=== PATIENT | female | born 1990 | race Caucasian/White ===

== ENCOUNTER 2022-08-06 11:34 | Outpatient (CLI) | payer BC, OTHER ==
[2022-08-06 13:33] VITALS: BP 124/78; PULSE 124; RESP 16; TEMP 97.2
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
== END 2022-08-06 13:10 | disposition home or self-care (01) ==
LOC: FBPOP 11:34
PROVIDERS: ATTEND Obstetrics & Gynecology Obstetrics
DX: O47.03 False labor before 37 completed weeks of gestation, third trimester (principal); Z3A.33 33 weeks gestation of pregnancy; Z88.0 Allergy status to penicillin; Z88.2 Allergy status to sulfonamides; Z91.040 Latex allergy status; Z88.8 Allergy status to other drugs, medicaments and biological substances
CPT/HCPCS: 59025; 99213

== ENCOUNTER 2022-08-29 09:42 | Outpatient (CLI) | payer BC, OTHER ==
[2022-08-29 10:28] VITALS: BP 125/71; PULSE 118; RESP 16; TEMP 95.5
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
== END 2022-08-29 10:13 | disposition home or self-care (01) ==
LOC: FBPOP 09:42
PROVIDERS: ATTEND Obstetrics & Gynecology
DX: O47.03 False labor before 37 completed weeks of gestation, third trimester (principal); Z3A.36 36 weeks gestation of pregnancy; Z91.040 Latex allergy status; Z88.0 Allergy status to penicillin; Z88.2 Allergy status to sulfonamides; Z88.8 Allergy status to other drugs, medicaments and biological substances
CPT/HCPCS: 59025; 99213

== ENCOUNTER → 2023-11-27 | Outpatient (CLI) | payer BC, OTHER ==
[2023-11-27 15:40] LABS: BUN/Creat Ratio 21.88 Ratio (12.00-20.00); Blood Urea Nitrogen 17.5 mg/dL (9.0-27.0); Calcium 9.8 mg/dL (8.7-10.3); Carbon Dioxide 22.2 mmol/L (21.6-31.8); Chloride 103 mmol/L (96-109); Glucose 90 mg/dL (70-110); Potassium 4.3 mmol/L (3.5-5.5); Sodium 140 mmol/L (135-145)
[2023-11-27 15:51] LABS: Basophils # (A) 0.02 X 10*3/uL (0.00-0.10); Basophils % (A) 0.3 %; Eosinophils # (A) 0.12 X 10*3/uL (0.04-0.35); Eosinophils % (A) 1.8 %; HCT 40.1 % (37.2-46.3); HGB 12.8 g/dL (12.0-15.0); Lymphocytes # (A) 1.41 X 10*3/uL (0.90-5.00); Lymphocytes % (A) 21.7 %; MCH 27.2 pg (27.0-32.0); MCHC 31.9 g/dL (32.0-37.0); MCV 85.1 FL (80.0-97.0); Mean Platelet Volume 10.8 FL (9.5-12.2); Monocytes # (A) 0.37 X 10*3/uL (0.20-1.00); Monocytes % (A) 5.7 %; NRBC Per 100 WBC 0 X 10*3/uL (0.00-0.01); Neutrophils # (A) 4.58 X 10*3/uL (1.80-7.70); Neutrophils % (A) 70.3 %; Platelet Count 319 X 10*3/uL (140-440); RBC 4.71 X 10*6/uL (4.10-5.20); RDW 13.7 % (11.5-14.5); WBC 6.51 X 10*3/uL (4.50-10.00)
== END | disposition home or self-care (01) ==
LOC: LABPAT 09:50
PROVIDERS: ATTEND Orthopaedic Surgery
DX: Z01.812 Encounter for preprocedural laboratory examination (principal); M75.42 Impingement syndrome of left shoulder
CPT/HCPCS: 80048; 85025

== ENCOUNTER 2023-12-01 06:52 | Day surgery (SDC) | payer BC, OTHER ==
--- NOTE | 2023-11-30 08:38 | P.HPOR ---
History of Present Illness H&P Date: 11/30/23 Chief Complaint: Left shoulder pain Patient is a 33-year-old female who presents with left shoulder pain that began in April 2022 after she jammed it during a fall. She's had extensive therapy without much relief. She notes anterior and lateral pain with overhead activity and at night. She's been taking Geddes for this. Review of Systems Per HPI Past Medical History Past Medical History: GERD/Reflux History of Any Multi-Drug Resistant Organisms: None Reported Past Surgical History: Cholecystectomy Past Anesthesia/Blood Transfusion Reactions: Postoperative Nausea & Vomiting (PONV) Smoking Status: Former smoker - Past Family History Father Family Medical History: No Reported History Medications and Allergies Home Medications Medication Instructions Recorded Confirmed Type Dextroamp-Amphetamin 20 mg PO DAILY 11/28/23 11/28/23 History FLUoxetine HCL 40 mg PO DAILY 11/28/23 11/28/23 History HYDROcodone/APAP 10-325MG [Geddes 1 tab PO TID PRN 11/28/23 11/28/23 History 10-325] LORazepam [Ativan] 2 mg PO TID PRN 11/28/23 11/28/23 History Allergies Allergy/AdvReac Type Severity Reaction Status Date / Time Latex, Natural Rubber Allergy Rash/Hives Verified 11/28/23 14:11 morphine Allergy Rash/Hives Verified 11/28/23 14:30 omeprazole [From Prilosec] Allergy Rash/Hives Verified 11/28/23 14:11 Penicillins Allergy Rash/Hives Verified 11/28/23 14:11 Sulfa (Sulfonamide Allergy Rash/Hives Verified 11/28/23 14:11 Antibiotics) Physical Examination - Shoulder left Tenderness with palpation: anterior, bicipital groove Pain: with abduction, with forward flexion ROM: forward flexion: 100 degrees ROM: internal rotation: lower lumbar ROM: external rotation: 60 degrees Crepitus with motion: Yes Strength: abduction: 4/5 Strength: external rotation: 5/5 Tests: internal impingement tests: positive, external impingment tests: positive Results She is a well-developed well-nourished female proximally 5 foot 9, 220 pounds of endomorphic habitus. HEENT exam is nonfocal, neck supple. She's tender about the anterior subacromial space of the left shoulder. She has moderate subacromial crepitus. Lynn, Neer sign, and speed test is positive. Her distal neurovascular appears intact in the left upper extremity. - Diagnostic results Shoulder MRI: image reviewed (MRI of the left shoulder shows evidence of intrasubstance signal involving the supraspinatus.) Assessment and Plan Assessment: Left shoulder impingement/rotator cuff tendinitis Plan: I talked to the patient at length regarding her condition along with treatment options. At this point she remains quite symptomatic despite previous extensive conservative measures. After a thorough discussion she opted to proceed with surgery. We'll plan to proceed with left shoulder arthroscopy with probable subacromial decompression. Risks and benefits were discussed at length in layman's terms. We will likely perform that as an outpatient procedure.
[2023-12-01] MEDS ORDERED: fentaNYL (PF) 50 MCG/ML 2 ML AMP IV PRN (07:00)
[2023-12-01] MEDS ORDERED: MIDAZOLAM 2 MG/2 ML VIAL IV PRN (07:00)
[2023-12-01] MEDS: LACTATED RINGERS 1,000 ML IV SCH (07:55)
[2023-12-01] MEDS: DEXAMETHASONE SOD PHOSPHATE 4 MG/ML 1 ML VIAL IV ONE (07:56)
[2023-12-01] MEDS: ONDANSETRON 4 MG/2 ML VIAL IVP ONE (07:56)
[2023-12-01] MEDS: SCOPOLAMINE 1 MG/72 HR PATCH TRANSDERM ONE (07:56)
[2023-12-01] MEDS: LIDOCAINE 1% (10MG/ML) FOR IV START INTRADERMA ONE (07:57)
[2023-12-01 08:17] VITALS: RESP 16
[2023-12-01] MEDS: MIDAZOLAM 2 MG/2 ML VIAL IVP ONE (08:28)
[2023-12-01] MEDS: fentaNYL (PF) 50 MCG/ML 2 ML AMP IVP ONE (08:28)
[2023-12-01] MEDS ORDERED: PHENYLEPHRINE-0.9% NACL SYG 1,000 MCG/10 ML SYRINGE ONE (08:42)
[2023-12-01] MEDS ORDERED: ROPIVACAINE 5 MG/ML 30 ML VIAL ONE (08:42)
[2023-12-01] MEDS ORDERED: GLYCOPYRROLATE 0.2 MG/ML 2 ML VIAL ONE (08:42)
[2023-12-01] MEDS ORDERED: fentaNYL (PF) 50 MCG/ML 2 ML AMP ONE (08:42)
[2023-12-01] MEDS ORDERED: PROPOFOL 10 MG/ML 20 ML VIAL IV ONE (08:42)
[2023-12-01] MEDS ORDERED: MIDAZOLAM 2 MG/2 ML VIAL ONE (08:42)
[2023-12-01] MEDS ORDERED: ROCURONIUM 10 MG/ML (5 ML VIAL) IV ONE (08:42)
[2023-12-01] MEDS ORDERED: SUCCINYLCHOLINE CHLORIDE 200 MG/10 ML VIAL IV ONE (08:42)
[2023-12-01] MEDS ORDERED: NEOSTIGMINE 1 MG/ML 10 ML VIAL ONE (08:42)
[2023-12-01] MEDS ORDERED: LIDOCAINE 1% INJ 10MG/ML (20 ML MDV) ONE (08:42)
[2023-12-01] MEDS ORDERED: ePHEDrine 50 MG/ML 1 ML VIAL ONE (08:42)
[2023-12-01] MEDS: EPINEPHrine (PF) 1 ML in SODIUM CHLORIDE 0.9% IRRIGATIO 3,000 ML IRRIGATION ONE ×4 (09:08)
--- NOTE | 2023-12-01 09:50 | P.OP ---
Date of Procedure: 12/01/23 Preoperative Diagnosis: Left shoulder impingement Postoperative Diagnosis: Same Procedure(s) Performed: Left shoulder arthroscopic subacromial decompression/distal clavicular resection Anesthesia: SHARM[facility] regional Surgeon: Kyrie Rodriguez Estimated Blood Loss (ml): 10 Pathology: none sent Condition: stable Disposition: PACU Indications for Procedure: The patient's a 33-year-old female who presents with progressive left shoulder pain despite conservative measures. A discussion of the risks and benefits of operative intervention versus continued conservative measures was made with the patient. She opted to proceed with surgery. Operative risks to include infection, neurovascular injury, development of blood clots, possible incomplete resolution of symptoms, possible worsening symptoms and need for subsequent procedures was discussed. Informed consent was obtained. Operative Findings: As below Description of Procedure: The patient was brought to the operating room, and after induction of general anesthesia was placed in a beachchair position. A preoperative interscalene block was placed for postoperative analgesia. I examined the left shoulder. There was no gross block to passive motion or gross glenohumeral instability. The left upper extremity was prepped and draped in normal fashion. The bony outlines the acromion, distal clavicle, and coracoid process were outlined with a skin marker. The glenohumeral joint was inflated with 50 mL of saline utilizing a spinal needle from posterior approach. A posterior portal was made through a 5 mm skin incision 1 cm medial and inferior to the posterior lateral border time. A blunt trocar was used to easily into the joint. Diagnostic arthroscopy was performed. An anterior portal was made just lateral to the coracoid process entering the joint above the subscapularis tendon. The subscapularis tendon appeared to be intact. Anterior labrum was intact. The inferior recess was inspected. The posterior labrum was intact. The biceps and its anchor were stable and intact. On inspection the rotator cuff, it appeared to be intact on the articular surface. The arthroscope was placed into the subacromial space. A lateral portal was made 2 centimeters inferior to the anterior lateral border of the acromion. The soft tissue on the undersurface of the acromion was debrided with a motorized shaver and electrocautery clearly defining the anterior medial and lateral borders as well as the distal clavicle. An anterior inferior acromioplasty was performed with a motorized adam starting anterolateral, then extending this posteriorly, then extending this medially. I converted to a flat acromion and this was verified in the posterior and lateral viewing portals. The distal clavicle was impinging on the subacromial space. The distal 8 mm of the clavicle was resected with a motorized adam. There was significant bursal thickening in the subacromial space. This was debrided with a motorized shaver. The rotator cuff was inspected and felt to be intact. The arthroscope was then removed. The portals were closed with simple 3-0 nylon sutures. A sterile dressing was applied in addition to a sling. The patient was then awoken from general anesthesia and transferred to recovery room in good condition. Blood loss was estimated at 10 mL. No complications were incurred. Sponge and needle counts were correct in the case. Tanmay AMARO assisted and the major components of the case to include arm positioning, decompression, and distal clavicular resection.
[2023-12-01 10:28] VITALS: TEMP 98.5
[2023-12-01] MEDS: IV FLUID CONTINUATION 100 ML IV ONE (10:28)
[2023-12-01 11:01] VITALS: BP 109/61; PULSE 99
--- NOTE | 2023-12-01 16:44 | P.ANPRN ---
Procedure Note - Anesthesia - Nerve Block Performed Left Interscalene Single Time Out Performed: Yes ([id number]) Date of Procedure: 12/01/23 Procedure Start Time: : Procedure Stop Time: :32 Location of Patient: PreOp Indication: Acute Post-Operative Pain, Requested by Surgeon Specifically requested for management of pain by : Kyrie Rodriguez Sedation Type: Sedate with meaningful contact maintained Preparation: Sterile Prep Position: Supine Catheter: None Needle Types: Pajunk Needle Gauge: 21 Ultrasound used to visualize needle placement: Yes Ultrasound used to observe medication spread: Yes Injectate: 0.5% Ropivacaine (see comment for volume) (30cc) Blood Aspirated: No Pain Paresthesia on Injection Noted: No Resistance on Injection: Normal Image Stored and Saved: Yes Events: Uneventful and Well Tolerated
== END 2023-12-01 11:05 | disposition home or self-care (01) ==
LOC: OR 06:52
PROVIDERS: ATTEND Orthopaedic Surgery
DX: M75.42 Impingement syndrome of left shoulder (principal); F41.9 Anxiety disorder, unspecified; F43.10 Post-traumatic stress disorder, unspecified; K21.9 Gastro-esophageal reflux disease without esophagitis; Z87.891 Personal history of nicotine dependence; Z88.0 Allergy status to penicillin; Z88.1 Allergy status to other antibiotic agents; Z88.2 Allergy status to sulfonamides; Z91.040 Latex allergy status; Z88.8 Allergy status to other drugs, medicaments and biological substances; Z79.899 Other long term (current) drug therapy
CPT/HCPCS: 64415; 81025; 29824; 29826; J2250; J0330; J1100; J2710; J0690; J2405; J0171; J2001; J3010; J2795; J2704; J2371

== ENCOUNTER 2024-08-20 11:33 | Emergency (ER) | payer BC, OTHER ==
[2024-08-20 11:44] VITALS: BP 159/97; PULSE 104; RESP 16; TEMP 97.8
[2024-08-20] MEDS: KETOROLAC 15 MG/ML 1 ML VIAL IM STA (12:32)
[2024-08-20] MEDS: ORPHENADRINE 30 MG/ML 2 ML VIAL IM STA (12:32)
--- NOTE | 2024-08-20 12:32 | ED ---
Extremity Problem HPI - General Chief complaint: Extremity Problem,Nontraumatic Stated complaint: William knee pain Time Seen by Provider: 08/20/24 12:29 Source: patient, RN notes reviewed Mode of arrival: ambulatory Limitations: no limitations - History of Present Illness Initial comments: 34-year-old female presenting for bilateral knee and left shoulder pain. Patient states this pain is chronic for 1.5 years. States she is having a flareup of pain due to cold weather. States she takes Percocet for pain regularly however has been unable to get into her primary care doctor for prescription. She is requesting pain control today. No acute symptoms. No recent injuries or falls. Denies fevers, redness, swelling. - Related Data Home Medications Medication Instructions Recorded Confirmed Dextroamp-Amphetamin 20 mg PO DAILY 11/28/23 12/01/23 FLUoxetine HCL 40 mg PO DAILY 11/28/23 12/01/23 LORazepam [Ativan] 2 mg PO TID PRN 11/28/23 12/01/23 Albuterol Inhaler [Ventolin Hfa 2 puff INHALATION QID 12/01/23 12/01/23 Inhaler] Lansoprazole 15 mg PO DAILY 12/01/23 12/01/23 oxyCODONE-APAP 10-325MG [Percocet 1 tab PO Q6HR PRN 12/01/23 12/01/23 10-325 mg] Previous Rx's Medication Instructions Recorded Ketorolac [Toradol] 10 mg PO Q8HR #15 tab 08/20/24 Allergies Allergy/AdvReac Type Severity Reaction Status Date / Time Latex, Natural Rubber Allergy Rash/Hives Verified 12/01/23 07:49 morphine Allergy Rash/Hives Verified 12/01/23 07:49 omeprazole [From Prilosec] Allergy Rash/Hives Verified 12/01/23 07:49 Penicillins Allergy Rash/Hives Verified 12/01/23 07:49 Sulfa (Sulfonamide Allergy Rash/Hives Verified 12/01/23 07:49 Antibiotics) Review of Systems ROS Statement: Those systems with pertinent positive or pertinent negative responses have been documented in the HPI. ROS Other: All systems not noted in ROS Statement are negative. Past Medical History Additional Past Medical History / Comment(s): chronic pain History of Any Multi-Drug Resistant Organisms: None Reported Past Surgical History: Cholecystectomy, Orthopedic Surgery Past Psychological History: Anxiety, Depression Smoking Status: Never smoker General Exam Limitations: no limitations General appearance: alert, in no apparent distress Head exam: Present: atraumatic, normocephalic, normal inspection Extremities exam: Present: normal inspection, full ROM, normal capillary refill. Absent: tenderness, pedal edema, joint swelling, calf tenderness Neurological exam: Present: alert, oriented X3 Psychiatric exam: Present: normal affect, normal mood Skin exam: Present: warm, dry, intact, normal color. Absent: rash Course Vital Signs 08/20/24 11:40 Temperature 97.8 F Pulse Rate 104 H Respiratory 16 Rate Blood Pressure 159/97 O2 Sat by Pulse 99 Oximetry Medical Decision Making - Medical Decision Making Was pt. sent in by a medical professional or institution (PREM [facility], APPRENTICE PAINTER HAND, urgent care, hospital, or alf...) When possible be specific @ -No Did you speak to anyone other than the patient for history (EMS, parent, family, police, friend...)? What history was obtained from this source @ -No Did you review nursing and triage notes (agree or disagree)? Why? @ -I reviewed and agree with nursing and triage notes Were old charts reviewed (outside hosp., previous admission, EMS record, old EKG, old radiological studies, urgent care reports/EKG's, alf records)? Report findings @ -No old charts were reviewed Differential Diagnosis (chest pain, altered mental status, abdominal pain women, abdominal pain men, vaginal bleeding, weakness, fever, dyspnea, syncope, headache, dizziness, GI bleed, back pain, seizure, CVA, palpatations, mental health, musculoskeletal)? @ -Differential Musculoskeletal Muscular strain, contusion, ligament sprain, fracture, arthritis, septic arthritis, bursitis, cellulitis, muscle spasm, nerve compression, DVT, arterial occlusion, herpes zoster, electrolyte abnormality, tumor.... This is not meant to be in all inclusive list EKG interpreted by me (3pts min.). @ -None X-rays interpreted by me (1pt min.). @ -None done CT interpreted by me (1pt min.). @ -None done U/S interpreted by me (1pt. min.). @ -None done What testing was considered but not performed or refused? (CT, X-rays, U/S, labs)? Why? @ -Declines imaging today as she states pain is chronic in nature, no new injuries What meds were considered but not given or refused? Why? @ -None Did you discuss the management of the patient with other professionals (professionals i.e. , PA, APPRENTICE PAINTER HAND, lab, RT, psych nurse, drug abuse social worker, sorter lumber straightener, teacher, humane officer, case hardener)? Give summary @ -No Was smoking cessation discussed for >3mins.? @ -No Was critical care preformed (if so, how long)? @ -No Were there social determinants of health that impacted care today? How? (Homelessness, low income, unemployed, alcoholism, drug addiction, transportation, low edu. Level, literacy, decrease access to med. care, [facility], rehab)? @ -No Was there de-escalation of care discussed even if they declined (Discuss DNR or withdrawal of care, Hospice)? DNR status @ -No What co-morbidities impacted this encounter? (DM, HTN, Smoking, COPD, CAD, Cancer, CVA, ARF, Chemo, Hep., AIDS, mental health diagnosis, sleep apnea, morbid obesity)? @ -None Was patient admitted / discharged? Hospital course, mention meds given and route, prescriptions, significant lab abnormalities, going to OR and other pertinent info. @ -Discharge. This is a 34-year-old female presenting for acute flareup of chronic bilateral knee pain and left shoulder pain. Denies any acute symptoms. Neurovascularly intact. Patient declines imaging today as she states pain is chronic in nature and is requesting pain control today. Patient was provided with Toradol, Norflex, and morphine. Prescribed Toradol to pharmacy. Advised patient must follow-up with PCP for pain management. Case was discussed with my ED attending Dr. Carias. Patient discharged in stable condition. Undiagnosed new problem with uncertain prognosis? @ -No Drug Therapy requiring intensive monitoring for toxicity (Heparin, Nitro, Insulin, Cardizem)? @ -No Were any procedures done? @ -No Diagnosis/symptom? @ -Chronic bilateral knee pain Acute, or Chronic, or Acute on Chronic? @ -Acute on chronic Uncomplicated (without systemic symptoms) or Complicated (systemic symptoms)? @ -Uncomplicated Side effects of treatment? @ -No Exacerbation, Progression, or Severe Exacerbation? @ -No Poses a threat to life or bodily function? How? (Chest pain, [place], [place], pneumonia, PE, COPD, DKA, ARF, appy, cholecystitis, CVA, Diverticulitis, Homicidal, Suicidal, threat to staff... and all critical care pts) @ -No Disposition Clinical Impression: Bilateral chronic knee pain Disposition: HOME SELF-CARE Condition: Stable Additional Instructions: Follow-up with PCP. Please return to the Emergency Department if symptoms worsen or any other concerns. Prescriptions: Ketorolac [Toradol] 10 mg PO Q8HR #15 tab Is patient prescribed a controlled substance at d/c from ED?: No Referrals: [facility] [NON-STAFF] - 1-2 days [facility] [NON-STAFF] - 1-2 days None,Stated [Primary Care Provider] - 1-2 days Forms: Area PCPs Time of Disposition: 13:17
[2024-08-20] MEDS: MORPHINE SULFATE 4 MG/ML SYRINGE IM STA (12:33)
== END 2024-08-20 13:30 | disposition home or self-care (01) ==
LOC: EC 11:33
DX: G89.29 Other chronic pain (principal); M25.561 Pain in right knee; M25.562 Pain in left knee; Z88.0 Allergy status to penicillin; Z88.1 Allergy status to other antibiotic agents; Z88.2 Allergy status to sulfonamides; Z88.5 Allergy status to narcotic agent; Z91.040 Latex allergy status; Z88.8 Allergy status to other drugs, medicaments and biological substances
CPT/HCPCS: 99283; 96372 ×3; J2270; J2360; J1885

== ENCOUNTER 2024-08-24 08:44 | Emergency (ER) | payer MEDICARE, OTHER ==
[2024-08-24 08:49] VITALS: BP 137/88; PULSE 99; RESP 18; TEMP 98.3
--- NOTE | 2024-08-24 09:05 | ED ---
Extremity Problem HPI - General Chief complaint: Extremity Problem,Nontraumatic Stated complaint: L shoulder/both knee pain Time Seen by Provider: 08/24/24 08:49 Source: patient, RN notes reviewed Mode of arrival: ambulatory Limitations: no limitations - History of Present Illness Initial comments: This is a 34-year-old female who presents to the emergency department requesting help for her chronic pain. She has a history of chronic pain in her left shoulder and bilateral knees. Was previously on Percocet 10 mg 4 times daily. However, she is waiting for a new referral to pain management and has not been able to get her prescription for the last couple of months. Pain tends to get triggered with weather changes and as a result it has been recently increasing. Denies any new injuries. She was evaluated here 4 days ago. States that the morphine was not effective. She was given a prescription for Toradol, but states that this was not helpful either, prompting her to return today. - Related Data Home Medications Medication Instructions Recorded Confirmed Dextroamp-Amphetamin 20 mg PO DAILY 11/28/23 12/01/23 FLUoxetine HCL 40 mg PO DAILY 11/28/23 12/01/23 LORazepam [Ativan] 2 mg PO TID PRN 11/28/23 12/01/23 Albuterol Inhaler [Ventolin Hfa 2 puff INHALATION QID 12/01/23 12/01/23 Inhaler] Lansoprazole 15 mg PO DAILY 12/01/23 12/01/23 oxyCODONE-APAP 10-325MG [Percocet 1 tab PO Q6HR PRN 12/01/23 12/01/23 10-325 mg] Previous Rx's Medication Instructions Recorded Ketorolac [Toradol] 10 mg PO Q8HR #15 tab 08/20/24 Meloxicam [Mobic] 15 mg PO DAILY #30 tab 08/24/24 methocarbamoL [Robaxin-750] 1,500 mg PO TID PRN #30 tab 08/24/24 Allergies Allergy/AdvReac Type Severity Reaction Status Date / Time Latex, Natural Rubber Allergy Rash/Hives Verified 12/01/23 07:49 morphine Allergy Rash/Hives Verified 12/01/23 07:49 omeprazole [From Prilosec] Allergy Rash/Hives Verified 12/01/23 07:49 Penicillins Allergy Rash/Hives Verified 12/01/23 07:49 Sulfa (Sulfonamide Allergy Rash/Hives Verified 12/01/23 07:49 Antibiotics) Review of Systems ROS Statement: Those systems with pertinent positive or pertinent negative responses have been documented in the HPI. ROS Other: All systems not noted in ROS Statement are negative. Past Medical History Additional Past Medical History / Comment(s): chronic pain History of Any Multi-Drug Resistant Organisms: None Reported Past Surgical History: Cholecystectomy, Orthopedic Surgery Past Psychological History: Anxiety, Depression Smoking Status: Never smoker Past Alcohol Use History: None Reported Past Drug Use History: None Reported General Exam Limitations: no limitations General appearance: alert, in no apparent distress Head exam: Present: atraumatic, normocephalic, normal inspection Respiratory exam: Present: normal lung sounds bilaterally. Absent: respiratory distress, wheezes, rales, rhonchi, stridor Cardiovascular Exam: Present: regular rate, normal rhythm, normal heart sounds. Absent: systolic murmur, diastolic murmur, rubs, gallop, clicks Neurological exam: Present: alert, oriented X3, CN II-XII intact Psychiatric exam: Present: normal affect, normal mood Skin exam: Present: warm, dry, intact, normal color. Absent: rash Course Vital Signs 08/24/24 08:47 Temperature 98.3 F Pulse Rate 99 Respiratory 18 Rate Blood Pressure 137/88 O2 Sat by Pulse 98 Oximetry Medical Decision Making - Medical Decision Making This is a 34 year old female who presents to the emergency department for chronic pain. Was pt. sent in by a medical professional or institution? @ -No Did you speak to anyone other than the patient for history? @ -No Did you review nursing and triage notes? @ -Yes, and I agree, it is accurate with regards to the patient's symptoms. Were old charts reviewed? @ -Operative note from 12/01/2023 discussing patient's left shoulder impingement requiring subacromial decompression with distal clavicular resection. Differential Diagnosis? @ -Differential Musculoskeletal Muscular strain, contusion, ligament sprain, fracture, arthritis, septic arthritis, bursitis, cellulitis, muscle spasm, nerve compression, DVT, arterial occlusion, herpes zoster, electrolyte abnormality, tumor.... This is not meant to be in all inclusive list EKG interpreted by me (3pts min.)? @ -Not obtained X-rays interpreted by me (1pt min.)? @ -Not obtained CT interpreted by me (1pt min.)? @ -Not obtained U/S interpreted by me (1pt. min.)? @ -Not obtained What testing was considered but not performed? (CT, X-rays, U/S, labs)? Why? @ -None What meds were considered but not given? Why? @ -None Did you discuss the management of the patient with other professionals? @ -No Did you reconcile home meds? @ -No Was smoking cessation discussed for >3mins.? @ -No Was critical care preformed (if so, how long)? @ -No Were there social determinants of health that impacted care today? How? (Homelessness, low income, unemployed, alcoholism, drug addiction, transportation, low edu. Level, literacy, decrease access to med. care, intermediate, rehab)? @ -No Was there de-escalation of care discussed even if they declined? (Discuss DNR or withdrawal of care, Hospice)? @ -No What co-morbidities impacted this encounter? (DM, HTN, Smoking, COPD, CAD, Cancer, CVA, Hep., AIDS, mental health diagnosis, sleep apnea, morbid obesity)? @ -Chronic pain Was patient admitted / discharged? @ -Discharged. I did review prior records on the patient and she does have documented problems with her chronic pain, particularly the left shoulder. She had surgery with Dr. Rodriguez in November of this year for subacromial decompression and distal clavicular resection. She has only been seen here 1 other time for pain control. [facility] was reviewed as well and she has not had any refills on her pain medication since June. Pain was managed in the emergency department. Advised that I can give her a 3-day refill on her pain medication, however we cannot refill this chronically here and she needs to make sure she follows up with her PCP or pain management for routine prescriptions. Advised she take this as sparingly as possible. Mobic and Robaxin provided to see if they can offer additional relief and reduce narcotic use. Patient discharged home in stable condition. Case discussed with ED attending Dr. Carias. Return precautions reviewed in depth, the patient is instructed to return to the emergency department with any new, worsening, or concerning symptoms. Patient verbalized understanding. Undiagnosed new problem with uncertain prognosis? @ -None Drug Therapy requiring intensive monitoring for toxicity (Heparin, Nitro, Insulin, Cardizem)? @ -None Were any procedures done? @ -None Diagnosis/symptom? @ -Chronic left shoulder pain, chronic bilateral knee pain Acute, or Chronic, or Acute on Chronic? @ -Chronic Uncomplicated (without systemic symptoms) or Complicated (systemic symptoms)? @ -Uncomplicated Side effects of treatment? @ -None Exacerbation, Progression, or Severe Exacerbation] @ -Exacerbation Poses a threat to life or bodily function? @ -Yes, patient reports that pain is limiting her ability to function. Disposition Clinical Impression: Chronic knee pain, Chronic left shoulder pain Disposition: HOME SELF-CARE Instructions (If sedation given, give patient instructions): Knee Pain (ED), Shoulder Pain (ED) Additional Instructions: Return to the emergency department with any new, worsening, or concerning symptoms. Begin taking the Mobic once daily. Take the Robaxin as 1 to 2 tablets up to 3-4 times daily. Try to use the oxycodone as sparingly as possible. Follow up with your primary care provider in 1-2 days. Prescriptions: Meloxicam [Mobic] 15 mg PO DAILY #30 tab methocarbamoL [Robaxin-750] 1,500 mg PO TID PRN #30 tab PRN Reason: Pain Is patient prescribed a controlled substance at d/c from ED?: No Referrals: None,Stated [Primary Care Provider] - 1-2 days Time of Disposition: 09:05
[2024-08-24] MEDS: KETOROLAC 15 MG/ML 1 ML VIAL IM STA (09:10)
[2024-08-24] MEDS: HYDROmorphone 1 MG/ML 1 ML SYRINGE IM STA (09:10)
== END 2024-08-24 09:33 | disposition home or self-care (01) ==
LOC: EC 08:44
DX: G89.29 Other chronic pain (principal); M25.512 Pain in left shoulder; M25.562 Pain in left knee; Z88.0 Allergy status to penicillin; Z88.1 Allergy status to other antibiotic agents; Z88.2 Allergy status to sulfonamides; Z91.040 Latex allergy status
CPT/HCPCS: 99283; 96372 ×2; J1171; J1885

== ENCOUNTER 2024-08-29 06:57 | Emergency (ER) | payer MEDICARE, OTHER ==
--- NOTE | 2024-08-29 08:15 | ED ---
General Adult HPI - General Chief complaint: Recheck/Abnormal Lab/Rx Stated complaint: shoulder pain Time Seen by Provider: 08/29/24 07:21 Source: patient, RN notes reviewed Limitations: no limitations - History of Present Illness Initial comments: 34-year-old female presents to the emergency department for evaluation of "chronic pain". Patient reports that she has a history of chronic pain in bilateral knees and her left shoulder. She denies any new injury. She reports that she is out of her Percocet. She denies any new symptoms at this time. She states that she has a appointment with a new doctor for medication management. - Related Data Home Medications Medication Instructions Recorded Confirmed Dextroamp-Amphetamin 20 mg PO DAILY 11/28/23 12/01/23 FLUoxetine HCL 40 mg PO DAILY 11/28/23 12/01/23 LORazepam [Ativan] 2 mg PO TID PRN 11/28/23 12/01/23 Albuterol Inhaler [Ventolin Hfa 2 puff INHALATION QID 12/01/23 12/01/23 Inhaler] Lansoprazole 15 mg PO DAILY 12/01/23 12/01/23 oxyCODONE-APAP 10-325MG [Percocet 1 tab PO Q6HR PRN 12/01/23 12/01/23 10-325 mg] Previous Rx's Medication Instructions Recorded Ketorolac [Toradol] 10 mg PO Q8HR #15 tab 08/20/24 Meloxicam [Mobic] 15 mg PO DAILY #30 tab 08/24/24 methocarbamoL [Robaxin-750] 1,500 mg PO TID PRN #30 tab 08/24/24 Allergies Allergy/AdvReac Type Severity Reaction Status Date / Time Latex, Natural Rubber Allergy Rash/Hives Verified 08/29/24 07:04 morphine Allergy Rash/Hives Verified 08/29/24 07:04 omeprazole [From Prilosec] Allergy Rash/Hives Verified 08/29/24 07:04 Penicillins Allergy Rash/Hives Verified 08/29/24 07:04 Sulfa (Sulfonamide Allergy Rash/Hives Verified 08/29/24 07:04 Antibiotics) Review of Systems ROS Statement: Those systems with pertinent positive or pertinent negative responses have been documented in the HPI. ROS Other: All systems not noted in ROS Statement are negative. Past Medical History Additional Past Medical History / Comment(s): chronic pain History of Any Multi-Drug Resistant Organisms: None Reported Past Surgical History: Cholecystectomy, Orthopedic Surgery Past Psychological History: Anxiety, Depression Smoking Status: Never smoker Past Alcohol Use History: Rare Past Drug Use History: None Reported General Exam Limitations: no limitations General appearance: alert, in no apparent distress Head exam: Present: atraumatic, normocephalic, normal inspection Eye exam: Present: normal appearance, PERRL, EOMI. Absent: scleral icterus, conjunctival injection, periorbital swelling ENT exam: Present: normal exam, mucous membranes moist Neck exam: Present: normal inspection. Absent: tenderness, meningismus, lymphadenopathy Respiratory exam: Present: normal lung sounds bilaterally. Absent: respiratory distress, wheezes, rales, rhonchi, stridor Cardiovascular Exam: Present: regular rate, normal rhythm, normal heart sounds. Absent: systolic murmur, diastolic murmur, rubs, gallop, clicks Extremities exam: Present: normal inspection, full ROM, normal capillary refill. Absent: tenderness, pedal edema, joint swelling, calf tenderness Neurological exam: Present: alert, oriented X3 Psychiatric exam: Present: normal affect, normal mood Skin exam: Present: warm, dry, intact, normal color. Absent: rash Course Vital Signs 08/29/24 08/29/24 07:04 08:44 Temperature 98.7 F 98.4 F Pulse Rate 106 H 89 Respiratory 19 18 Rate Blood Pressure 136/86 129/85 O2 Sat by Pulse 97 98 Oximetry Medical Decision Making - Medical Decision Making Was pt. sent in by a medical professional or institution (, PA, RESEARCH TEST ENGINE OPERATOR, urgent care, hospital, or residential...) When possible be specific @ -No Did you speak to anyone other than the patient for history (EMS, parent, family, police, friend...)? What history was obtained from this source @ -No Did you review nursing and triage notes (agree or disagree)? Why? @ -I reviewed and agree with nursing and triage notes Were old charts reviewed (outside hosp., previous admission, EMS record, old EKG, old radiological studies, urgent care reports/EKG's, residential records)? Report findings @ -No old charts were reviewed Differential Diagnosis (chest pain, altered mental status, abdominal pain women, abdominal pain men, vaginal bleeding, weakness, fever, dyspnea, syncope, headache, dizziness, GI bleed, back pain, seizure, CVA, palpatations, mental health, musculoskeletal)? @ -Differential Musculoskeletal Muscular strain, contusion, ligament sprain, fracture, arthritis, septic arthritis, bursitis, cellulitis, muscle spasm, nerve compression, DVT, arterial occlusion, herpes zoster, electrolyte abnormality, tumor.... This is not meant to be in all inclusive list EKG interpreted by me (3pts min.). @ -None X-rays interpreted by me (1pt min.). @ -None done CT interpreted by me (1pt min.). @ -None done U/S interpreted by me (1pt. min.). @ -None done What testing was considered but not performed or refused? (CT, X-rays, U/S, labs)? Why? @ -X-ray considered, patient reports that this pain is chronic What meds were considered but not given or refused? Why? @ -None Did you discuss the management of the patient with other professionals (professionals i.e. , PA, RESEARCH TEST ENGINE OPERATOR, lab, RT, psych nurse, addiction social worker, blasting clay miner, teacher, chief privacy officer, bottle caser)? Give summary @ -No Was smoking cessation discussed for >3mins.? @ -No Was critical care preformed (if so, how long)? @ -No Were there social determinants of health that impacted care today? How? (Homelessness, low income, unemployed, alcoholism, drug addiction, transportation, low edu. Level, literacy, decrease access to med. care, senior care, rehab)? @ -No Was there de-escalation of care discussed even if they declined (Discuss DNR or withdrawal of care, Hospice)? DNR status @ -No What co-morbidities impacted this encounter? (DM, HTN, Smoking, COPD, CAD, Cancer, CVA, ARF, Chemo, Hep., AIDS, mental health diagnosis, sleep apnea, morbid obesity)? @ -None Was patient admitted / discharged? Hospital course, mention meds given and route, prescriptions, significant lab abnormalities, going to OR and other pertinent info. @ -Discharge. Patient reported to the emergency department for evaluation of chronic left shoulder pain and bilateral knee pain. She reports that she is on a medication and is requesting refills of her Percocet. Discussed with patient that I would provide her medication for pain control while in the emergency department but would not be refilling her controlled substances. She is understanding of this. She will be discharged home. Patient stable at time of discharge. Case discussed with Dr. Carias. Undiagnosed new problem with uncertain prognosis? @ -No Drug Therapy requiring intensive monitoring for toxicity (Heparin, Nitro, Insulin, Cardizem)? @ -No Were any procedures done? @ -No Diagnosis/symptom? @ -Knee pain, shoulder pain Acute, or Chronic, or Acute on Chronic? @ -Chronic Uncomplicated (without systemic symptoms) or Complicated (systemic symptoms)? @ -Uncomplicated Side effects of treatment? @ -No Exacerbation, Progression, or Severe Exacerbation? @ -No Poses a threat to life or bodily function? How? (Chest pain, [place], [place], pneumonia, PE, COPD, DKA, ARF, appy, cholecystitis, CVA, Diverticulitis, Homicidal, Suicidal, threat to staff... and all critical care pts) @ -No Disposition Clinical Impression: Bilateral chronic knee pain, Chronic left shoulder pain Disposition: HOME SELF-CARE Condition: Stable Additional Instructions: Please follow up with a local primary care provider. Return to the emergency department for new or worsening symptoms. Is patient prescribed a controlled substance at d/c from ED?: No Referrals: None,Stated [Primary Care Provider] - 1-2 days
[2024-08-29] MEDS: ORPHENADRINE 30 MG/ML 2 ML VIAL IM STA (08:19)
[2024-08-29] MEDS: KETOROLAC 15 MG/ML 1 ML VIAL IM STA (08:19)
[2024-08-29] MEDS: HYDROmorphone 0.5 MG/0.5 ML SYRINGE IM STA (08:20)
[2024-08-29 08:46] VITALS: BP 129/85; PULSE 89; RESP 18; TEMP 98.4
== END 2024-08-29 08:48 | disposition home or self-care (01) ==
LOC: EC 06:57
DX: G89.29 Other chronic pain (principal); M25.562 Pain in left knee; M25.561 Pain in right knee; M25.512 Pain in left shoulder; Z88.0 Allergy status to penicillin; Z88.1 Allergy status to other antibiotic agents; Z88.2 Allergy status to sulfonamides; Z91.040 Latex allergy status
CPT/HCPCS: 99283; 96372 ×3; J2360; J1885; J1171

== ENCOUNTER 2024-09-09 11:30 | Emergency (ER) | payer MEDICARE, OTHER ==
[2024-09-09 11:47] VITALS: BP 147/93; PULSE 110; RESP 18; TEMP 98.4
--- NOTE | 2024-09-09 12:29 | ED ---
Extremity Problem HPI - General Chief complaint: Extremity Problem,Nontraumatic Stated complaint: L Shoulder Pain Time Seen by Provider: 09/09/24 11:45 Source: patient, RN notes reviewed Mode of arrival: ambulatory Limitations: no limitations - History of Present Illness Initial comments: This is a 34-year-old female presenting with chronic left shoulder pain described as "unbearable". Patient states she was recently approved to see a pain management clinic soon. Patient states she is unsure of the diagnosis of her left shoulder and is unwilling/refusing to allow for physical examination, only demonstrating ability to raise shoulder/LUE to shoulder level. Patient is requesting IV/IM tramadol, morphine and "nausea medication". Patient is also requesting p.o. Percocet. Patient denies any other symptoms at this time. MD Complaint: joint pain Location: left, upper extremity History of Same: No -: Yes arthralgia Consistency: constant - Related Data Home Medications Medication Instructions Recorded Confirmed Dextroamp-Amphetamin 20 mg PO DAILY 11/28/23 12/01/23 FLUoxetine HCL 40 mg PO DAILY 11/28/23 12/01/23 LORazepam [Ativan] 2 mg PO TID PRN 11/28/23 12/01/23 Albuterol Inhaler [Ventolin Hfa 2 puff INHALATION QID 12/01/23 12/01/23 Inhaler] Lansoprazole 15 mg PO DAILY 12/01/23 12/01/23 oxyCODONE-APAP 10-325MG [Percocet 1 tab PO Q6HR PRN 12/01/23 12/01/23 10-325 mg] Previous Rx's Medication Instructions Recorded Ketorolac [Toradol] 10 mg PO Q8HR #15 tab 08/20/24 Meloxicam [Mobic] 15 mg PO DAILY #30 tab 08/24/24 methocarbamoL [Robaxin-750] 1,500 mg PO TID PRN #30 tab 08/24/24 Allergies Allergy/AdvReac Type Severity Reaction Status Date / Time Latex, Natural Rubber Allergy Rash/Hives Verified 09/09/24 11:46 morphine Allergy Rash/Hives Verified 09/09/24 11:46 omeprazole [From Prilosec] Allergy Rash/Hives Verified 09/09/24 11:46 Penicillins Allergy Rash/Hives Verified 09/09/24 11:46 Sulfa (Sulfonamide Allergy Rash/Hives Verified 09/09/24 11:46 Antibiotics) Review of Systems ROS Statement: Those systems with pertinent positive or pertinent negative responses have been documented in the HPI. ROS Other: All systems not noted in ROS Statement are negative. Past Medical History Additional Past Medical History / Comment(s): chronic pain History of Any Multi-Drug Resistant Organisms: None Reported Past Surgical History: Cholecystectomy, Orthopedic Surgery Past Psychological History: Anxiety, Depression Past Alcohol Use History: Rare General Exam Limitations: no limitations General appearance: alert, in no apparent distress (Patient sitting quietly in chair with no indication of significant pain or distress.) Head exam: Present: atraumatic, normocephalic, normal inspection Eye exam: Present: normal appearance, PERRL, EOMI. Absent: scleral icterus, conjunctival injection, periorbital swelling ENT exam: Present: normal exam, mucous membranes moist Neck exam: Present: normal inspection. Absent: tenderness, meningismus, lymphadenopathy Respiratory exam: Present: normal lung sounds bilaterally. Absent: respiratory distress, wheezes, rales, rhonchi, stridor Cardiovascular Exam: Present: regular rate, normal rhythm, normal heart sounds. Absent: systolic murmur, diastolic murmur, rubs, gallop, clicks GI/Abdominal exam: Present: soft, normal bowel sounds. Absent: distended, tenderness, guarding, rebound, rigid Extremities exam: Present: other (Patient refused any examination of affected shoulder including palpation, distal neurovascular status or ROM/strength testing). Absent: tenderness, pedal edema, joint swelling, calf tenderness Back exam: Present: normal inspection Neurological exam: Present: alert, oriented X3, CN II-XII intact Psychiatric exam: Present: normal affect, normal mood Skin exam: Present: warm, dry, intact, normal color. Absent: rash Course Vital Signs 09/09/24 11:44 Temperature 98.4 F Pulse Rate 110 H Respiratory 18 Rate Blood Pressure 147/93 O2 Sat by Pulse 97 Oximetry Medical Decision Making - Medical Decision Making Was pt. sent in by a medical professional or institution (, PA, DIRECTOR WORK, urgent care, hospital, or halfway...) When possible be specific @ -No Did you speak to anyone other than the patient for history (EMS, parent, family, police, friend...)? What history was obtained from this source @ -No Did you review nursing and triage notes (agree or disagree)? Why? @ -I reviewed and agree with nursing and triage notes Were old charts reviewed (outside hosp., previous admission, EMS record, old EKG, old radiological studies, urgent care reports/EKG's, halfway records)? Report findings @ -No old charts were reviewed Differential Diagnosis (chest pain, altered mental status, abdominal pain women, abdominal pain men, vaginal bleeding, weakness, fever, dyspnea, syncope, headache, dizziness, GI bleed, back pain, seizure, CVA, palpatations, mental health, musculoskeletal)? @ -Rotator cuff injury/tear, rotator cuff tendinitis, shoulder impingement syndrome, frozen shoulder, calcified tendinitis, shoulder osteoarthritis, this is not an exhaustive list EKG interpreted by me (3pts min.). @ -Not done X-rays interpreted by me (1pt min.). @ -None done CT interpreted by me (1pt min.). @ -None done U/S interpreted by me (1pt. min.). @ -None done What testing was considered but not performed or refused? (CT, X-rays, U/S, labs)? Why? @ -None What meds were considered but not given or refused? Why? @ -None Did you discuss the management of the patient with other professionals (professionals i.e. , PA, DIRECTOR WORK, lab, RT, psych nurse, social work professor, bearingizer, teacher, environmental officer, supportive employment case manager)? Give summary @ -No Was smoking cessation discussed for >3mins.? @ -No Was critical care preformed (if so, how long)? @ -No Were there social determinants of health that impacted care today? How? (Homelessness, low income, unemployed, alcoholism, drug addiction, transportation, low edu. Level, literacy, decrease access to med. care, skilled nursing, rehab)? @ -No Was there de-escalation of care discussed even if they declined (Discuss DNR or withdrawal of care, Hospice)? DNR status @ -No What co-morbidities impacted this encounter? (DM, HTN, Smoking, COPD, CAD, Cancer, CVA, ARF, Chemo, Hep., AIDS, mental health diagnosis, sleep apnea, morbid obesity)? @ -None Was patient admitted / discharged? Hospital course, mention meds given and route, prescriptions, significant lab abnormalities, going to OR and other pertinent info. @ -Spoke to Dr. Carias regarding patient's pain complaint. Physician advised to discharge patient without administration of pain medication due to repeated use/abuse of ER over the past month alone (6 times) for management of a chronic condition. Physician advised me to advise patient to follow-up with primary care and/or pain management clinic for management of chronic pain. Undiagnosed new problem with uncertain prognosis? @ -No Drug Therapy requiring intensive monitoring for toxicity (Heparin, Nitro, Insulin, Cardizem)? @ -No Were any procedures done? @ -No Diagnosis/symptom? @ -Chronic shoulder pain Acute, or Chronic, or Acute on Chronic? @ -Chronic Uncomplicated (without systemic symptoms) or Complicated (systemic symptoms)? @ -Uncomplicated Side effects of treatment? @ -No Exacerbation, Progression, or Severe Exacerbation? @ -No Poses a threat to life or bodily function? How? (Chest pain, [place], [place], pneumonia, PE, COPD, DKA, ARF, appy, cholecystitis, CVA, Diverticulitis, Homicidal, Suicidal, threat to staff... and all critical care pts) @ -No Disposition Clinical Impression: Chronic left shoulder pain Disposition: HOME SELF-CARE Condition: Good Instructions (If sedation given, give patient instructions): Shoulder Pain (ED) Additional Instructions: Follow-up with PCP and/or pain clinic for management of chronic pain. Is patient prescribed a controlled substance at d/c from ED?: No Referrals: Nonstaff,Physician [Primary Care Provider] - 1-2 days Time of Disposition: 12:29
== END 2024-09-09 12:40 | disposition home or self-care (01) ==
LOC: EC 11:30
DX: M25.512 Pain in left shoulder (principal); Z91.040 Latex allergy status; Z88.0 Allergy status to penicillin; Z88.5 Allergy status to narcotic agent; Z88.2 Allergy status to sulfonamides; Z88.1 Allergy status to other antibiotic agents
CPT/HCPCS: 99282